=== PATIENT | male | born 2000 | race Two or more races ===

== ENCOUNTER 2022-11-07 11:54 | Emergency (ER) | payer MEDICAID ==
[~2022-11-07] VITALS: Ht 165.1 cm; Wt 65.8 kg
--- NOTE | 2022-11-07 12:15 | NUR ---
AT [facility]
[2022-11-07] MEDS ORDERED: IV NS 0.9% 1,000 ML BAG IV ONE (12:30)
--- NOTE | 2022-11-07 12:32 | NUR ---
PT IS A/O X4 BREATHING IS EVEN AND UNLABORED. VITAL WNL C/O: FEELS FATIGUE, 6/10 SKIN FEELS LIKE BURNING. LEGS BEGIN SHIVERING. HEAT FLASHS. HAS LOST 15 POUNDS IN 1 MONTH.
[2022-11-07 12:49] LABS: BASOPHILS % (AUTO) 0.1 % (0.0-2.0); EOSINOPHILS % (AUTO) 0.1 % (0.0-6.0); HEMATOCRIT 40 % (39-51); HEMOGLOBIN 13.3 g/dL (13.5-17.5); LYMPHOCYTES # (AUTO) 1.5 K/uL (0.8-4.8); MEAN CORPUSCULAR HGB CONC 33 g/dl (31.0-36.0); MEAN CORPUSCULAR VOLUME 86 fL (80-96); MONOCYTES # (AUTO) 1.1 K/uL (0.1-1.30); MONOCYTES % (AUTO) 13.8 % (2.0-12.0); NEUTROPHILS # (AUTO) 5.5 K/uL (1.8-8.9); PLATELET COUNT (AUTO) 257 K/uL (150-450); RED BLOOD CELL COUNT(AUTO) 4.69 MIL/uL (4.5-6.0); WHITE BLOOD COUNT (AUTO) 8.1 K/uL (4.3-11.0)
[2022-11-07 13:34] LABS: ALBUMIN 3.9 g/dL (3.4-5.0); BILIRUBIN,DIRECT 0.2 mg/dL (0.0-0.2); BILIRUBIN,TOTAL 0.5 mg/dL (0.2-1.0); CALCIUM, SERUM 9.4 mg/dL (8.5-10.1); CREATININE 0.5 mg/dL (0.6-1.3); POTASSIUM 3.5 mmol/L (3.5-5.1); TOTAL PROTEIN, SERUM 7.2 g/dL (6.4-8.2)
--- NOTE | 2022-11-07 13:39 | NUR ---
TSH RESULT 30MIN PER LAB
[2022-11-07 14:56] VITALS: BP 133/77
== END 2022-11-07 14:57 | disposition home or self-care (01) ==
LOC: ER 12:01
DX: F41.9 Anxiety disorder, unspecified (principal); R53.83 Other fatigue; R00.0 Tachycardia, unspecified; R63.4 Abnormal weight loss; Z20.822 Contact with and (suspected) exposure to COVID-19
CPT/HCPCS: 99285; 96360; 71045; 87426; 93005; 85025; 80048; 80076; 36415; 84439; 84443; 82962; 84481; J7030; C9803